=== PATIENT | male | born 2000 | race Caucasian/White ===

== ENCOUNTER 2018-02-09 21:34 | Emergency (ER) | payer MEDICAID ==
[2018-02-09] MEDS ORDERED: predniSONE 10 MG Tab PO ONE (22:28)
[2018-02-09] MEDS ORDERED: predniSONE 10 MG Tab PO SCH (22:30)
--- NOTE | 2018-02-09 22:37 | EDM.PDOC ---
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 She was conjunctivitis nasal congestion cough and has been very tired. When he lived in [place] he did not have his allergies only now after he has been in [place] he has experienced the fall dust pollen and particles in the air that is have these symptoms. 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 - Related Data Allergies Allergy/AdvReac Type Severity Reaction Status Date / Time cat dander Allergy Itching Verified 02/09/18 21:46 grass pollen Allergy Itching Verified 02/09/18 21:46 horse dander Allergy Itching Verified 02/09/18 21:46 hay Allergy Itching Uncoded 02/09/18 21:46 Home Meds: Home Meds predniSONE [Prednisone] 40 mg PO DAILY #5 tablet 02/09/18 [Rx] Past Medical History - Past Health History Medical/Surgical History: Denies Medical/Surgical History Social & Family History - Family History Family Medical History: Noncontributory - Tobacco Use Smoking Status *Q: Never Smoker Second Hand Smoke Exposure: No - Caffeine Use Caffeine Use: Reports: Energy Drinks, Soda - Recreational Drug Use Recreational Drug Use: No ED ROS GENERAL - Review of Systems Review Of Systems: See Below Constitutional: Reports: No Symptoms HEENT: Reports: No Symptoms, Other (Nasal discharge and congestion, sore throat and denasal speech slight cough without wheezing) Respiratory: Reports: Cough Cardiovascular: Reports: No Symptoms Endocrine: Reports: No Symptoms GI/Abdominal: Reports: No Symptoms : Reports: No Symptoms Musculoskeletal: Reports: No Symptoms Skin: Reports: No Symptoms Neurological: Reports: Other (Tiredness) Hematologic/Lymphatic: Reports: No Symptoms Immunologic: Reports: Environmental Allergy, Seasonal Allergy, Pollen Allergy ED EXAM, GENERAL - Physical Exam Exam: See Below Free Text/Narrative:: Wasn't tall anesthetic self-contained young man Exam Limited By: No Limitations General Appearance: Alert, WD/WN, No Apparent Distress Eye Exam: Bilateral Eye: Other (Scleral injection) Ears: Normal External Exam, Normal Canal, Hearing Grossly Normal, Normal TMs Ear Exam: Bilateral Ear: Auricle Normal, Canal Normal, TM normal Nose: Nasal Swelling, Other (Bilateral juxtaposition turbinate the septal mucosa ) Throat/Mouth: Normal Inspection, Normal Lips, Normal Teeth, Normal Gums, Normal Oropharynx, Normal Voice, No Airway Compromise Neck: Normal Inspection, Supple, Non-Tender, Full Range of Motion, Other (No lymphadenopathy) Respiratory/Chest: No Respiratory Distress, Lungs Clear, Normal Breath Sounds, No Accessory Muscle Use, Chest Non-Tender Cardiovascular: Normal Peripheral Pulses, Regular Rate, Rhythm, No Edema, No Gallop, No JVD, No Murmur, No Rub GI/Abdominal: Normal Bowel Sounds, Soft, Non-Tender, No Organomegaly, No Distention (Male) Exam: Deferred Rectal (Males) Exam: Deferred Back Exam: Normal Inspection Extremities: Normal Inspection Psychiatric: Normal Affect, Normal Mood Skin Exam: Warm, Dry, Intact, Normal Color Course - Vital Signs Last Recorded V/S: Last Vital Signs Temp 36.6 C 02/09/18 21:48 Pulse 60 02/09/18 21:48 Resp 18 02/09/18 21:48 BP 144/68 H 02/09/18 21:48 Pulse Ox 100 02/09/18 21:48 - Orders/Labs/Meds Orders: Active Orders 24 hr Category Date Time Status predniSONE Med 02/09/18 22:30 Ordered 40 mg PO .Daily Taper Medication Orders Prednisone (Prednisone) 40 mg PO .Daily Taper KINJAL Meds: Medications Generic Name Dose Route Start Last Admin Trade Name Freq PRN Reason Stop Dose Admin Prednisone 40 mg 02/09/18 22:30 Prednisone PO .Daily Taper KINJAL Discontinued Medications Generic Name Dose Route Start Last Admin Trade Name Freq PRN Reason Stop Dose Admin Prednisone 40 mg 02/09/18 22:28 Prednisone PO 02/09/18 22:29 ONETIME ONE Departure - Departure Time of Disposition: 22:30 (Sinus allergic seasonal rhinitis, conjunctivitis, reactive airway cough without asthma, and tiredness secondary to the allergies.) Disposition: Home, Self-Care 01 Condition: Good Clinical Impression: Seasonal allergies - Discharge Information *PRESCRIPTION DRUG MONITORING PROGRAM REVIEWED*: Not Applicable *COPY OF PRESCRIPTION DRUG MONITORING REPORT IN PATIENT BERNICE: Not Applicable Prescriptions: predniSONE [Prednisone] 40 mg PO DAILY #5 tablet Referrals: PCP,None [Primary Care Provider] - Forms: ED Department Discharge Additional Instructions: You have seasonal allergic rhinitis You have significant allergic children's conjunctivitis Your cough is secondary allergic mediated reactive airway disease without any signs of asthma I have prescribed Patanol 1 drop each eye daily it takes 10 days before because to work on the mast cells and before you have anti-allergic effect Continue to use your Zyrtec Use prednisone 40 mg daily for 5 days your tiredness is secondary to the flare seasonal allergies that you're experiencing now Follow-up with your doctor/health care provider in one week - My Orders Last 24 Hours: My Active Orders 02/09/18 22:30 predniSONE 40 mg PO .Daily Taper - Assessment/Plan Last 24 Hours: My Active Orders 02/09/18 22:30 predniSONE 40 mg PO .Daily Taper
== END 2018-02-09 22:50 | disposition home or self-care (01) ==
LOC: FB.ED 21:34
DX: J30.2 Other seasonal allergic rhinitis (principal); Z79.899 Other long term (current) drug therapy; Z91.09 Other allergy status, other than to drugs and biological substances
CPT/HCPCS: 99282; A9270

== ENCOUNTER 2019-06-23 19:06 | Emergency (ER) | payer MEDICAID, OTHER, SELFPAY ==
--- NOTE | 2019-06-23 19:36 | EDM.PDOC ---
ED HPI GENERAL MEDICAL PROBLEM - General Stated Complaint: HURT FINGER Time Seen by Provider: 06/23/19 19:25 Source of Information: Reports: Patient History Limitations: Reports: No Limitations - History of Present Illness INITIAL COMMENTS - FREE TEXT/NARRATIVE: right index finger was injured during basketball in January 2019, proximal phalanges , used esther tape , xray showed a fracture , no other intervention today was playing basketball and got the finger injured again , with implosion of the finger . Has swelling redness and pain in the proximal phalangeal joint Onset: Today Quality: Reports: Ache, Dull Severity: Mild Improves with: Reports: Cold Therapy Worsens with: Reports: Immobilization, Movement Context: Reports: Activity - Related Data Allergies Allergy/AdvReac Type Severity Reaction Status Date / Time cat dander Allergy Itching Verified 02/09/18 21:46 grass pollen Allergy Itching Verified 02/09/18 21:46 horse dander Allergy Itching Verified 02/09/18 21:46 hay Allergy Itching Uncoded 02/09/18 21:46 Home Meds: Home Meds Olopatadine [Pataday 0.2% Ophth Soln] 1 drop EYEBOTH DAILY #1 bottle 02/09/18 [ Rx] predniSONE [Prednisone] 40 mg PO DAILY #5 tablet 02/09/18 [Rx] Past Medical History - Past Health History Medical/Surgical History: Denies Medical/Surgical History Social & Family History - Family History Family Medical History: Noncontributory - Caffeine Use Caffeine Use: Reports: Energy Drinks, Soda Review of Systems - Review of Systems Review Of Systems: Comprehensive ROS is negative, except as noted in HPI. Constitutional: Reports: No Symptoms Eyes: Reports: No Symptoms Ears: Reports: No Symptoms Nose: Reports: No Symptoms Mouth/Throat: Reports: No Symptoms Respiratory: Reports: No Symptoms Cardiovascular: Reports: No Symptoms Musculoskeletal: Reports: Hand Pain (tight finger, proximal phalange), Joint Pain, Joint Swelling Skin: Reports: No Symptoms Neurological: Reports: No Symptoms Psychiatric: Reports: No Symptoms ED EXAM, GENERAL - Physical Exam Exam: See Below Exam Limited By: No Limitations General Appearance: Alert, WD/WN Eye Exam: Bilateral Eye: EOMI Ears: Normal External Exam Ear Exam: Bilateral Ear: Auricle Normal Nose: Normal Inspection Extremities: Normal Inspection, Normal Range of Motion, Joint Swelling (right index finger), Limited Range of Motion (of 2nd finger of right hand), Increased Warmth Neurological: Alert, Oriented Course - Vital Signs Last Recorded V/S: Last Vital Signs Temp 36.6 C 06/23/19 19:20 Pulse 59 L 06/23/19 19:20 Resp 16 06/23/19 19:20 BP 128/69 06/23/19 19:20 Pulse Ox 99 06/23/19 19:20 - Orders/Labs/Meds Orders: Active Orders 24 hr Category Date Time Status Fingers Second Digit Rt F6 [CR] Stat Exams 06/23/19 19:30 Taken - Re-Assessments/Exams Free Text/Narrative Re-Assessment/Exam: 06/23/19 20:28 Xray sergo shows no new fracture will place him in brace Departure - Departure Time of Disposition: 08:25 Disposition: Home, Self-Care 01 Condition: Good Clinical Impression: Sprain of index finger, Sprain of finger of right hand - Discharge Information *PRESCRIPTION DRUG MONITORING PROGRAM REVIEWED*: Not Applicable *COPY OF PRESCRIPTION DRUG MONITORING REPORT IN PATIENT BERNICE: Not Applicable Instructions: Finger Sprain, Adult, [id number], Jammed Finger Referrals: PCP,None [Primary Care Provider] - Additional Instructions: Ibuprofen 600mg 3 times daily as needed for pain See your doctor for recheck in 1-2 weeks Sepsis Event Note - Focused Exam Vital Signs: Vital Signs Temp Pulse Resp BP Pulse Ox 06/23/19 19:20 36.6 C 59 L 16 128/69 99 Date Exam was Performed: 06/23/19 Time Exam was Performed: 20:23 - My Orders Last 24 Hours: My Active Orders 06/23/19 19:30 Fingers Second Digit Rt F6 [CR] Stat - Assessment/Plan Last 24 Hours: My Active Orders 06/23/19 19:30 Fingers Second Digit Rt F6 [CR] Stat
--- NOTE | 2019-06-24 11:11 | CR ---
INDICATION: Had a previous chip fracture base of index finger - injury. RIGHT 2ND DIGIT: Three views of the right index finger revealed evidence of old chip fracture fragment with soft tissue swelling at the lateral aspect of the 2nd metacarpophalangeal joint. The probable chip fracture fragment likely is from the distal metaphysis of the 2nd metacarpal. There is a minimal irregularity of the lateral aspect of the proximal metaphysis of the proximal phalanx of the index finger which may be on the basis of posttraumatic osteoarthritis. A definite acute fracture or dislocation was not identified. A tiny calcific density or bony density is noted along the lateral aspect of the proximal metaphysis of the proximal phalanx of the 3rd digit which could represent a tiny avulsion chip fracture fragment from a previous injury - does not appear to be acute. IMPRESSION: 1. No acute fracture or dislocation identified. 2. Old fracture site suggested. [facility]
== END 2019-06-23 20:35 | disposition home or self-care (01) ==
LOC: FB.ED 19:06
DX: S63.610A Unspecified sprain of right index finger, initial encounter (principal); Z88.8 Allergy status to other drugs, medicaments and biological substances; X58.XXXA Exposure to other specified factors, initial encounter; Y93.67 Activity, basketball
CPT/HCPCS: 73140-F6; 99283-25